=== PATIENT | male | born 2000 | race Caucasian/White ===

== ENCOUNTER 2020-10-07 15:36 | Emergency (ER) | payer MEDICAID ==
[~2020-10-07] VITALS: Ht 180.3 cm; Wt 54.5 kg
[2020-10-07 15:46] VITALS: BP 117/82
[2020-10-07 16:37] VITALS: PULSE 100
[2020-10-07] MEDS ORDERED: ZOFRAN ODT4 MG PO (16:38)
== END 2020-10-07 16:43 | disposition home or self-care (01) ==
LOC: COL.ER 15:36
DX: R10.9 Unspecified abdominal pain (principal); R11.2 Nausea with vomiting, unspecified